=== PATIENT | male | born 1960 | race African-American/Black ===

== ENCOUNTER 2017-10-05 17:22 | Emergency (ER) | payer OTHER | END 2017-10-05 22:11 | disposition home or self-care (01) | LOC: FTE 17:22 → E/R 22:11 | DX: B86 Scabies (principal); I10 Essential (primary) hypertension | CPT/HCPCS: 99283; Z7502 ==

== ENCOUNTER 2017-10-13 09:30 | Emergency (ER) | payer OTHER ==
[2017-10-13] MEDS: DIPHENHYDRAMINE 25 MG CAP PO (11:07)
== END 2017-10-13 12:24 | disposition home or self-care (01) ==
LOC: E/R 09:30
DX: R21 Rash and other nonspecific skin eruption (principal); I10 Essential (primary) hypertension
CPT/HCPCS: 99282; Z7502

== ENCOUNTER 2017-10-17 00:08 | Emergency (ER) | payer OTHER ==
[2017-10-17] MEDS: DIPHENHYDRAMINE 25 MG CAP PO (01:01)
[2017-10-17] MEDS: PERMETHRIN 5% 60 GM CR TOP (02:16)
== END 2017-10-17 02:53 | disposition home or self-care (01) ==
LOC: FTE 00:08
DX: L29.9 Pruritus, unspecified (principal); I10 Essential (primary) hypertension
CPT/HCPCS: 99283; Z7502

== ENCOUNTER 2017-10-18 17:40 | Emergency (ER) | payer OTHER | END 2017-10-18 18:01 | disposition home or self-care (01) | LOC: E/R 18:01 | DX: L29.9 Pruritus, unspecified (principal); I10 Essential (primary) hypertension | CPT/HCPCS: 99282; Z7502 ==

== ENCOUNTER 2017-11-04 22:10 | Emergency (ER) | payer OTHER | END 2017-11-04 23:11 | disposition home or self-care (01) | LOC: FTE 23:11 | DX: B86 Scabies (principal); I10 Essential (primary) hypertension | CPT/HCPCS: 99283; Z7502 ==

== ENCOUNTER 2018-07-22 07:14 | Emergency (ER) | payer OTHER ==
[2018-07-22] MEDS: MUPIROCIN 2% 22 GM OINT TOP ×2 (08:38→08:39)
[2018-07-22] MEDS: KETOROLAC 30 MG INJ IM (08:38)
== END 2018-07-22 08:58 | disposition home or self-care (01) ==
LOC: E/R 07:14
DX: M79.671 Pain in right foot (principal); M79.672 Pain in left foot; R60.9 Edema, unspecified; B35.3 Tinea pedis; I10 Essential (primary) hypertension; J45.909 Unspecified asthma, uncomplicated; E66.9 Obesity, unspecified
CPT/HCPCS: 96372; 99284-25

== ENCOUNTER 2018-07-27 08:35 | Emergency (ER) | payer OTHER ==
[2018-07-27] MEDS ORDERED: morphine 4 MG/ML VIAL IV (09:21)
[2018-07-27] MEDS ORDERED: ONDANSETRON 4 MG INJ IV (09:21)
[2018-07-27] MEDS ORDERED: SOD CHLORIDE 0.9% 1,000 ML IV (09:21)
[2018-07-27 09:59] LABS: ADD MAN DIFF? NO
[2018-07-27 10:02] LABS: BASOPHIL # 0.1 10^3/ul (0.0-0.1); BASOPHILS % 0.7 % (0.0-2.0); EOSINOPHILS # 0.1 10^3/ul (0.0-0.5); EOSINOPHILS % 1.6 % (0.0-7.0); HEMATOCRIT 39.9 % (42.0-52.0); HEMOGLOBIN 13.4 g/dl (14.0-18.0); LYMPHOCYTES # 1.2 10^3/ul (0.8-2.9); MEAN CORPUSCULAR HEMOGLOBIN 28.7 pg (29.0-33.0); MEAN CORPUSCULAR HGB CONC 33.6 g/dl (32.0-37.0); MEAN CORPUSCULAR VOLUME 85.4 fl (82.0-101.0); MEAN PLATELET VOLUME 9.4 fl (7.4-10.4); MONOCYTE # 0.8 10^3/ul (0.3-0.9); MONOCYTES % 9.7 % (0.0-11.0); NEUTROPHILS % 72.6 % (39.0-77.0); PLATELET COUNT 279 10^3/UL (140-415); RED BLOOD COUNT 4.67 10^6/ul (4.70-6.10); RED CELL DISTRIBUTION WIDTH 15.1 % (11.5-14.5)
[2018-07-27 10:02] LABS: WHITE BLOOD COUNT 8.3 10^3/ul (4.8-10.8)
[2018-07-27 10:20] LABS: ALANINE AMINOTRANSFERASE 29 IU/L (13-69); ALBUMIN 4.3 g/dl (3.3-4.9); ALBUMIN/GLOBULIN RATIO 1.26; ALKALINE PHOSPHATASE 86 IU/L (42-121); ANION GAP 10 (5-13); ASPARTATE AMINO TRANSFERASE 49 IU/L (15-46); BILIRUBIN,INDIRECT 0.5 mg/dl (0-1.1); BILIRUBIN,TOTAL 0.5 mg/dl (0.2-1.3); BLOOD UREA NITROGEN 12 mg/dl (7-20); CALCIUM 9.3 mg/dl (8.4-10.2); CARBON DIOXIDE 27 mmol/L (21-31); CHLORIDE 103 mmol/L (97-110); Estimated GFR > 60 mL/min (>60); GLUCOSE 98 mg/dl (70-220); POTASSIUM 4.5 mmol/L (3.5-5.1); SODIUM 140 mmol/L (135-144); TOTAL PROTEIN 7.7 g/dl (6.1-8.1)
[2018-07-27 10:21] LABS: INR 0.85; PROTIME 11.7 Sec (11.9-14.9); PT RATIO 0.9
[2018-07-27 10:22] LABS: PARTIAL THROMBOPLASTIN TIME 32.5 Sec (23.0-35.0)
[2018-07-27 10:31] LABS: TROPONIN-I < 0.012 ng/ml (0.000-0.120)
[2018-07-27] MEDS: MUPIROCIN 2% 22 GM OINT TOP (10:55)
== END 2018-07-27 11:45 | disposition home or self-care (01) ==
LOC: E/R 11:45
DX: B35.3 Tinea pedis (principal); I10 Essential (primary) hypertension; J45.909 Unspecified asthma, uncomplicated; M79.672 Pain in left foot
CPT/HCPCS: 36415; 73630-LT; 80053; 84484; 85025; 85610; 85730; 93005; 99285-25

== ENCOUNTER 2018-08-14 10:41 | Emergency (ER) | payer OTHER ==
[2018-08-14 12:13] LABS: ADD MAN DIFF? NO
[2018-08-14 12:28] LABS: WHITE BLOOD COUNT 8.3 10^3/ul (4.8-10.8)
[2018-08-14 12:28] LABS: BASOPHIL # 0.1 10^3/ul (0.0-0.1); BASOPHILS % 0.6 % (0.0-2.0); EOSINOPHILS # 0.1 10^3/ul (0.0-0.5); EOSINOPHILS % 1.2 % (0.0-7.0); HEMATOCRIT 37.7 % (42.0-52.0); HEMOGLOBIN 12.7 g/dl (14.0-18.0); LYMPHOCYTES # 1.7 10^3/ul (0.8-2.9); LYMPHOCYTES % 20.8 % (15.0-51.0); MEAN CORPUSCULAR HEMOGLOBIN 28.5 pg (29.0-33.0); MEAN CORPUSCULAR HGB CONC 33.7 g/dl (32.0-37.0); MEAN CORPUSCULAR VOLUME 84.5 fl (82.0-101.0); MEAN PLATELET VOLUME 9.3 fl (7.4-10.4); MONOCYTE # 0.7 10^3/ul (0.3-0.9); MONOCYTES % 8.8 % (0.0-11.0); NEUTROPHIL # 5.7 10^3/ul (1.6-7.5); NEUTROPHILS % 68.4 % (39.0-77.0); PLATELET COUNT 404 10^3/UL (140-415); RED BLOOD COUNT 4.46 10^6/ul (4.70-6.10); RED CELL DISTRIBUTION WIDTH 14.7 % (11.5-14.5)
[2018-08-14 12:32] LABS: ALANINE AMINOTRANSFERASE 20 IU/L (13-69); ALBUMIN 4.1 g/dl (3.3-4.9); ALBUMIN/GLOBULIN RATIO 1.17; ALKALINE PHOSPHATASE 88 IU/L (42-121); ANION GAP 11 (5-13); ASPARTATE AMINO TRANSFERASE 32 IU/L (15-46); BILIRUBIN,INDIRECT 0.1 mg/dl (0-1.1); BILIRUBIN,TOTAL 0.1 mg/dl (0.2-1.3); BLOOD UREA NITROGEN 22 mg/dl (7-20); CALCIUM 9.5 mg/dl (8.4-10.2); CARBON DIOXIDE 26 mmol/L (21-31); CHLORIDE 104 mmol/L (97-110); CREATININE 2.03 mg/dl (0.61-1.24); Estimated GFR 41 mL/min (>60); GLUCOSE 100 mg/dl (70-220); SODIUM 141 mmol/L (135-144); TOTAL PROTEIN 7.6 g/dl (6.1-8.1)
[2018-08-14] MEDS: TRIMETHOPRIM/SULFAMETHOX (DS) TAB PO (13:23)
[2018-08-14] MEDS: CEPHALEXIN 500 MG CAP PO (13:24)
[2018-08-14] MEDS: BACITRACIN 0.9 GM OINT TOP (13:46)
[2018-08-14] MEDS: BACITRACIN 0.5%/ZINC 28.35 GM OINT TOP (13:47)
== END 2018-08-14 14:06 | disposition home or self-care (01) ==
LOC: E/R 10:41
DX: R60.0 Localized edema (principal); R40.2252 Coma scale, best verbal response, oriented, at arrival to emergency department; R40.2142 Coma scale, eyes open, spontaneous, at arrival to emergency department; I10 Essential (primary) hypertension; J45.909 Unspecified asthma, uncomplicated; N28.9 Disorder of kidney and ureter, unspecified; L98.499 Non-pressure chronic ulcer of skin of other sites with unspecified severity
CPT/HCPCS: 36415; 80053; 85025; 93970; 99284-25

== ENCOUNTER 2018-08-26 10:35 | Emergency (ER) | payer OTHER ==
[2018-08-26 17:02] LABS: ADD MAN DIFF? NO
[2018-08-26 17:06] LABS: WHITE BLOOD COUNT 5.9 10^3/ul (4.8-10.8)
[2018-08-26 17:06] LABS: BASOPHIL # 0.1 10^3/ul (0.0-0.1); BASOPHILS % 1.2 % (0.0-2.0); EOSINOPHILS # 0.2 10^3/ul (0.0-0.5); EOSINOPHILS % 3.1 % (0.0-7.0); HEMATOCRIT 34.1 % (42.0-52.0); HEMOGLOBIN 11.4 g/dl (14.0-18.0); LYMPHOCYTES # 2.1 10^3/ul (0.8-2.9); LYMPHOCYTES % 35.8 % (15.0-51.0); MEAN CORPUSCULAR HEMOGLOBIN 28.4 pg (29.0-33.0); MEAN CORPUSCULAR HGB CONC 33.4 g/dl (32.0-37.0); MONOCYTE # 0.8 10^3/ul (0.3-0.9); MONOCYTES % 13.7 % (0.0-11.0); NEUTROPHIL # 2.7 10^3/ul (1.6-7.5); PLATELET COUNT 301 10^3/UL (140-415); RED BLOOD COUNT 4.01 10^6/ul (4.70-6.10)
[2018-08-26] MEDS: CEFTRIAXONE 2 GM/50 ML (PMX) 50 ML IVPB (17:19)
[2018-08-26 17:25] LABS: ANION GAP 8 (5-13); BLOOD UREA NITROGEN 23 mg/dl (7-20); CARBON DIOXIDE 21 mmol/L (21-31); CHLORIDE 108 mmol/L (97-110); CREATININE 1.45 mg/dl (0.61-1.24); Estimated GFR > 60 mL/min (>60); GLUCOSE 97 mg/dl (70-220); POTASSIUM 4.4 mmol/L (3.5-5.1); SODIUM 137 mmol/L (135-144)
[2018-08-26 17:26] LABS: INR 0.97
[2018-08-26 17:27] LABS: PARTIAL THROMBOPLASTIN TIME 32.7 Sec (23.0-35.0)
[2018-08-26] MEDS: KETOCONAZOLE 2% 15 GM CR TOP (17:53)
[2018-08-26] MEDS: VANCOMYCIN 1 GM (PMX) 250 ML IVPB (17:53)
== END 2018-08-26 23:11 | disposition short-term general hospital (02) ==
LOC: E/R 10:35
DX: G61.9 Inflammatory polyneuropathy, unspecified (principal); R40.2142 Coma scale, eyes open, spontaneous, at arrival to emergency department; R40.2362 Coma scale, best motor response, obeys commands, at arrival to emergency department; R40.2252 Coma scale, best verbal response, oriented, at arrival to emergency department; B35.3 Tinea pedis; M86.9 Osteomyelitis, unspecified; L89.892 Pressure ulcer of other site, stage 2; I10 Essential (primary) hypertension; E66.01 Morbid (severe) obesity due to excess calories; J45.909 Unspecified asthma, uncomplicated; Z68.36 Body mass index [BMI] 36.0-36.9, adult
CPT/HCPCS: 36415; 73630; 73630-LT; 80048; 83605; 85025; 85610; 85730; 96374; 96375; 99285-25

== ENCOUNTER 2018-10-08 06:19 | Emergency (ER) | payer OTHER ==
[2018-10-08] MEDS: IBUPROFEN 200 MG TAB PO (07:12)
[2018-10-08] MEDS: ACETAMINOPHEN 325 MG TAB PO (07:12)
== END 2018-10-08 07:29 | disposition home or self-care (01) ==
LOC: FTE 06:19
DX: M79.671 Pain in right foot (principal); I10 Essential (primary) hypertension; J45.909 Unspecified asthma, uncomplicated
CPT/HCPCS: 99282; Z7502

== ENCOUNTER 2018-11-04 07:45 | Emergency (ER) | payer OTHER ==
[2018-11-04] MEDS: MUPIROCIN 2% 22 GM OINT TOP (13:56)
[2018-11-04] MEDS: KETOROLAC 30 MG INJ IM (13:56)
== END 2018-11-04 14:54 | disposition home or self-care (01) ==
LOC: E/R 07:45
DX: I87.2 Venous insufficiency (chronic) (peripheral) (principal); L97.501 Non-pressure chronic ulcer of other part of unspecified foot limited to breakdown of skin; I10 Essential (primary) hypertension; J45.909 Unspecified asthma, uncomplicated
CPT/HCPCS: 96372; 99284-25

== ENCOUNTER 2018-11-27 07:44 | Emergency (ER) | payer OTHER | END 2018-11-27 08:33 | disposition home or self-care (01) | LOC: E/R 07:44 | DX: M79.671 Pain in right foot (principal); I10 Essential (primary) hypertension; J45.909 Unspecified asthma, uncomplicated | CPT/HCPCS: 99283; Z7502 ==